=== PATIENT | male | born 1985 | race Caucasian/White ===

== ENCOUNTER 2016-06-13 21:49 | Emergency (ER) | payer MEDICAID ==
--- NOTE | 2016-06-13 22:18 | ED Physician Chart ---
Chief Complaint/HPI - Patient Information Date Seen:: 06/13/16 Time Seen:: 22:00 Chief Complaint:: Toothache for about 8 months. History of Present Illness:: Pt has had toothache in R lower jaw for about 8 months. Pt has pending dental appointment in [place] according to pt. Pt denies fever. Taking po well without N/V/D. Pt was seen by a dentist a week ago and is currently taking Amoxicillin. Pt is here primarily for pain control. Pt has not taken any analgesic today. Allergies:: Allergies Allergy/AdvReac Type Severity Reaction Status Date / Time No Known Allergies Allergy Verified 06/13/16 22:06 Vitals:: see Nurse Note. Historian:: Patient Family MD/PCP:: Unknown. LMP:: N/A Review:: Nurse's Note Reviewed Review of Systems - Review of Systems General/Constitutional: No fever, No chills, No weight loss, No weakness, No diaphoresis, No edema, No loss of appetite Skin: No skin lesions, No rash, No bruising Head: No headache, No light-headedness Eyes: No loss of vision, No pain, No diplopia ENT: No earache, No nasal drainage, No sore throat, No tinnitus, Other ( Toothache, see HPI.) Neck: No neck pain, No swelling, No thyromegaly, No stiffness, No mass noted Cardio Vascular: No chest pain, No palpitations, No PND, No orthopnea, No edema Pulmonary: No SOB, No cough, No sputum, No wheezing GI: No nausea, No vomiting, No diarrhea, No pain, No melena, No hematochezia, No constipation, No hematemesis G/U: No dysuria, No frequency, No hematuria Musculoskeletal: No bone or joint pain, No back pain, No muscle pain Endocrine: No polyuria, No polydipsia Psychiatric: No prior psych history Hematopoietic: No bruising, No lymphadenopathy Allergic/Immuno: No urticaria, No angioedema Neurological: No syncope, No focal symptoms, No weakness, No paresthesia, No headache, No seizure, No dizziness, No confusion, No vertigo Past Medical History - Past Medical History Past Medical History: No significant medical hx Family History: Heart disease (mother) Social History: Smoker (One pack tobacco weekly. Pt has been informed about health risks associated with chronic tobacco use and has been advised to quit. Pt has been encouraged to enroll in a smoking cessation program. Pt acknowledges understanding.), Alcohol (1-2 beers weekly. Pt has been informed about health risks associated with chronic alcohol use and has been advised to quit. Pt acknowledges understanding.), No Drug Use, , Lives Alone Employment:: unemployed. Surgical History: None Psychiatricy History: None Medication: Reviewed Family Medical History - Family Member Mother History Unknown: Yes Physical Exam - Physical Examination General/Constitutional: Awake, Well-developed, well-nourished, Alert, No distress, Non-toxic appearing, Ambulatory Other Gen/Cons comments:: Breathes comfortably, speaks clearly, and ambulates without difficulty. Head: Atraumatic Eyes: Lids, conjuctiva normal, PERRL, EOMI ENMT: External ears, nose nl, Nasal exam nl, Oropharynx nl Other ENMT comments:: Poor dentition with multiple missing teeth. Tenderness at R 2nd molar tooth in lower jaw with discoloration c/w dental decay. No peripheral erythema or swelling. No exudate. Neck: Nontender, Full ROM w/o pain, No nuchal rigidity, No mass, No stridor Respiratory: Nl effort/Exclusion, Clear to Auscultation, No Wheeze/Rhonchi/Rales Cardio Vascular: RRR, No murmur, gallop, rubs, NL S1 S2 GI: No tenderness/rebounding/guarding, No organomegaly, No hernia, Normal BS's, Nondistended, No mass/bruits, No McBurney tenderness Other GI comments:: Abdomen is soft. Neuro/Psych: Alert/oriented (oriented x 3), Mood normal, Normal gait, No focal deficits ED Septic Shock - . Is Septic Shock (SBP<90, OR Lactate>4 mmol\L) present?: No Reassessment (Disposition) - Reassessment Reassessment:: 2255 Pt feels better and requests to go home now. Aftercare instructions given. - Diagnosis Diagnosis:: Toothache c/w dental decay/pulpitis, stable. - Aftercare/Follow up Instructions Aftercare/Follow-Up Instructions:: Refer to Discharge Instructions Notes:: Continue Amoxicillin as prescribed by his dentist. Avoid extreme hot or cold food or liquid. May take Motrin 200 mg tab 4 tabs po q8h prn pain, not to take first dose at least 6 hours after Toradol given here. F/U at dental clinic in one day for recheck and further management. Return to ER immediately if condition worsens or if any further questions/problems. Medication Prescribed:: None - Patient Disposition Discharge/Transfer:: Home Time:: 22:55 Condition at Disposition:: Stable, Improved ED Discharge Plan - Patient Disposition Instructions: Dental Caries, Toothache-Brief Additional Instructions: FOLLOW UP WITH YOUR DENTIST IN 1-2 DAYS AND TO COME BACK TO ER IF SYMPTOMS WORSEN. AVOID EXTREME HOT AND COLD FOOD OF LIQUIDS. CONTINUE AMOXICILLIN PRESCRIBED BY YOUR DENTIST
== END 2016-06-13 23:00 | disposition home or self-care (01) ==
LOC: ER 21:49
DX: K04.01 Reversible pulpitis (principal); K02.9 Dental caries, unspecified; F17.200 Nicotine dependence, unspecified, uncomplicated
CPT/HCPCS: 99283; 96372; J1885; Z7502